=== PATIENT | female | born 1945 | race Caucasian/White ===

== ENCOUNTER → 2017-03-01 | Day surgery (SDC) | payer BC, MEDICARE ==
[~2017-03-01] MED LIST: ANGIOMAX 250 MG VIAL IV ONE; EPTIFIBATIDE INJ (2MG/ML) 10ML VIAL IV ONE; IODIXANOL 320MG/ML 100ML BTL IV ONE; LIDOCAINE 2%HCL (LOCAL ANESTH.) INJ 20ML MDV ONE; MIDAZOLAM HCL 1MG/1ML-2 ML VIAL ONE; SODIUM CHL 0.9% 0 ML ONE; VERAPAMIL 2.5MG/ML INJ 2ML VIAL IV ONE; fentaNYL CITRATE 100 MCG/2 ML VL ONE
== END | disposition home or self-care (01) ==
LOC: CATH 09:43 → EDUNIT# 09:43
PROVIDERS: ATTEND Internal Medicine
DX: I27.2 Other secondary pulmonary hypertension (principal); Z87.891 Personal history of nicotine dependence
CPT/HCPCS: 93460; C1751; C1760; C1769; C1894; J1644; J2250; J3010; J7030; Q9967; 99152

== ENCOUNTER 2018-02-17 14:12 | Inpatient (IN) | payer MEDICARE, OTHER ==
[~2018-02-17] VITALS: Ht 154.9 cm; Wt 79.9 kg
[~2018-02-17 14:12] MED LIST changes: +ACE3T PO; -ANGIOMAX 250 MG VIAL IV ONE; -EPTIFIBATIDE INJ (2MG/ML) 10ML VIAL IV ONE; +ETAN50IN5 SC; +FOLI1TAB6 PO; +FURO40TA PO; +HYDR200T PO; -IODIXANOL 320MG/ML 100ML BTL IV ONE; -LIDOCAINE 2%HCL (LOCAL ANESTH.) INJ 20ML MDV ONE; +LISI-711 PO; +METH2.5T3 PO; +METO5TAB56 PO; -MIDAZOLAM HCL 1MG/1ML-2 ML VIAL ONE; +POTA10TA34 PO; +RANI300T3 PO; +SILD50TA42 PO; -SODIUM CHL 0.9% 0 ML ONE; +TRAV0.00 EACHEYE; -VERAPAMIL 2.5MG/ML INJ 2ML VIAL IV ONE; -fentaNYL CITRATE 100 MCG/2 ML VL ONE
[2018-02-17 15:17] LABS: Eosinophils # (auto) 0.1 uL; Hemoglobin 12.6 g/dL (12.2-16.2); Nucleated Red Blood Cells % 0.3 %; White Blood Cell 8.4 10^3/uL (4.4-10.8)
[2018-02-17 15:19] LABS: Basophils # (auto) 0 uL; Basophils % (auto) 0.4 % (0.0-2.0); Eosinophils % (auto) 0.9 % (0.0-7.0); Hematocrit 42.1 % (36.0-46.0); Lymphocytes # (auto) 0.8 uL; Lymphocytes % (auto) 10.1 % (10.0-50.0); Mean Corpuscular Hemoglobin 23.6 pg (28.0-32.0); Mean Corpuscular Hgb Conc. 29.8 g/dL (32.0-36.0); Mean Corpuscular Volume 79.3 fL (80.0-100.0); Monocytes # (auto) 0.8 uL; Monocytes % (auto) 10.1 % (0.0-12.0); Neutrophils # (auto) 6.6 uL; Neutrophils % (auto) 78.5 % (37.0-80.0); Platelet Count (auto) 188 10^3/uL (140-450); Red Blood Cells 5.32 10^6/uL (4.0-5.20)
[2018-02-17 15:20] LABS: Red Cell Distribution Width 22.3 % (11.8-14.3)
[2018-02-17 15:29] LABS: Albumin 3.2 g/dL (3.4-5.0); BUN/Creatinine Ratio 32.5; Calcium 8.5 mg/dL (8.5-10.1); Magnesium 3.4 mg/dL (1.6-2.6); Potassium 4.7 mmol/L (3.5-5.1)
[2018-02-17 15:34] LABS: Bilirubin, Total 1.4 mg/dL (0.2-1.0); Total Protein 6.7 g/dL (6.4-8.2)
[2018-02-17] MEDS ORDERED: FUROSEMIDE 20 MG/2 ML VIAL IV ONE (16:30)
[2018-02-17] MEDS ORDERED: ENOXAPARIN SOD 80 MG/0.8ML SYRINGE SC ONE (16:30)
[2018-02-17 17:03] LABS: Urine Bacteria NONE SEEN /hpf (None Seen); Urine Blood Negative /uL (Negative); Urine Specific Gravity 1.019 (1.001-1.035); Urine WBC 2 /hpf (0 - 5)
[2018-02-17] MEDS: ceFAZolin 1GM/50ML 50 ML IV SCH (17:22)
[2018-02-17] MEDS: FOLIC ACID 1 MG TAB PO SCH (17:22)
[2018-02-17] MEDS: FUROSEMIDE 40 MG/4 ML VIAL IV SCH (17:22)
[2018-02-17] MEDS: IPRATROPIUM BROM 0.5 MG/2.5ML INH SOL NEB SCH (18:48)
[2018-02-17] MEDS: ALBUTEROL SULF 2.5 MG/0.5ML(0.5%) NEB SOLN NEB SCH (18:48)
[2018-02-17] MEDS: SODIUM CHLORIDE 0.9% 500 ML IV SCH (19:00)
[2018-02-17] MEDS: SILDENAFIL CITRATE 20 MG TAB PO SCH (19:55)
[2018-02-18] VITALS (7 sets, daily range): BP systolic 98–127; BP diastolic 49–68
[2018-02-18] MEDS: SODIUM CHLORIDE 0.9% 500 ML IV SCH ×2 (00:48→08:26)
[2018-02-18] MEDS: ceFAZolin 1GM/50ML 50 ML IV SCH ×3 (00:48→20:51)
[2018-02-18] MEDS ORDERED: FURO40TA PO (02:02)
[2018-02-18] MEDS ORDERED: RANI150C11 PO (02:02)
[2018-02-18] MEDS ORDERED: POTA10TA51 PO (02:02)
[2018-02-18] MEDS ORDERED: HYDR200T PO (02:02)
[2018-02-18] MEDS ORDERED: SILD20TA PO (02:02)
[2018-02-18] MEDS ORDERED: AMBR1TAB PO (02:02)
[2018-02-18] MEDS: FUROSEMIDE 40 MG/4 ML VIAL IV SCH (05:45)
[2018-02-18 06:53] LABS: Basophils # (auto) 0.1 uL; Eosinophils # (auto) 0.1 uL; Eosinophils % (auto) 1.3 % (0.0-7.0); Hematocrit 39.9 % (36.0-46.0); Hemoglobin 12.1 g/dL (12.2-16.2); Lymphocytes # (auto) 1.1 uL; Lymphocytes % (auto) 15.6 % (10.0-50.0); Mean Corpuscular Hemoglobin 23.8 pg (28.0-32.0); Mean Corpuscular Hgb Conc. 30.3 g/dL (32.0-36.0); Mean Corpuscular Volume 78.7 fL (80.0-100.0); Monocytes # (auto) 0.8 uL; Monocytes % (auto) 10.4 % (0.0-12.0); Neutrophils # (auto) 5.2 uL; Neutrophils % (auto) 71.7 % (37.0-80.0); Nucleated Red Blood Cells % 0.1 %; Platelet Count (auto) 144 10^3/uL (140-450); Red Blood Cells 5.06 10^6/uL (4.0-5.20); White Blood Cell 7.3 10^3/uL (4.4-10.8)
[2018-02-18 07:02] LABS: INR 1.25 (0.9-1.15); Partial Thromboplastin Time 34.9 sec (22.64-33.71); Prothrombin Time 13.7 sec (9.37-12.3)
[2018-02-18] MEDS: ALBUTEROL SULF 2.5 MG/0.5ML(0.5%) NEB SOLN NEB SCH ×4 (07:04→19:29)
[2018-02-18] MEDS: IPRATROPIUM BROM 0.5 MG/2.5ML INH SOL NEB SCH ×4 (07:04→19:29)
[2018-02-18 07:07] LABS: Red Cell Distribution Width 21.7 % (11.8-14.3)
[2018-02-18 07:10] LABS: Potassium 4.6 mmol/L (3.5-5.1)
[2018-02-18 07:16] LABS: BUN/Creatinine Ratio 39.8; Calcium 8.4 mg/dL (8.5-10.1)
[2018-02-18] MEDS: SILDENAFIL CITRATE 20 MG TAB PO SCH ×3 (08:25→20:52)
[2018-02-18] MEDS: HYDROXYCHLOROQUINE SULFATE 200 MG TAB PO SCH (10:42)
[2018-02-18] MEDS: FOLIC ACID 1 MG TAB PO SCH (10:42)
[2018-02-18] MEDS: PANTOPRAZOLE 40 MG TAB PO SCH (10:42)
[2018-02-18] MEDS: ENOXAPARIN SOD 30 MG/0.3 ML SYRINGE SC SCH (10:43)
[2018-02-18] MEDS ORDERED: FUROSEMIDE 40 MG/4 ML VIAL IV SCH (14:00)
[2018-02-18 18:27] LABS: BUN/Creatinine Ratio 38.6; Calcium 8.3 mg/dL (8.5-10.1); Potassium 4.2 mmol/L (3.5-5.1)
[2018-02-18] MEDS: SPIRONOLACTONE 25 MG TAB PO SCH (20:51)
[2018-02-18] MEDS: FUROSEMIDE INJECTION 250 MG in SODIUM CHL 0.9% 225 ML IV SCH (20:57)
[2018-02-19] MEDS: ceFAZolin 1GM/50ML 50 ML IV SCH ×3 (04:48→18:26)
[2018-02-19] MEDS: SPIRONOLACTONE 25 MG TAB PO SCH ×3 (05:02→21:59)
[2018-02-19 05:17] VITALS: BP 123/63
[2018-02-19] MEDS: IPRATROPIUM BROM 0.5 MG/2.5ML INH SOL NEB SCH ×4 (06:00→19:31)
[2018-02-19] MEDS: ALBUTEROL SULF 2.5 MG/0.5ML(0.5%) NEB SOLN NEB SCH ×4 (06:00→19:31)
[2018-02-19 06:59] LABS: Calcium 8.5 mg/dL (8.5-10.1); Potassium 3.7 mmol/L (3.5-5.1)
[2018-02-19 07:01] LABS: BUN/Creatinine Ratio 39.2
[2018-02-19] MEDS: SILDENAFIL CITRATE 20 MG TAB PO SCH ×3 (08:42→20:00)
[2018-02-19 09:00] VITALS: BP 101/51
[2018-02-19] MEDS: ENOXAPARIN SOD 30 MG/0.3 ML SYRINGE SC SCH ×2 (10:00→10:52)
[2018-02-19] MEDS: FOLIC ACID 1 MG TAB PO SCH (10:51)
[2018-02-19] MEDS: PANTOPRAZOLE 40 MG TAB PO SCH (10:51)
[2018-02-19] MEDS: HYDROXYCHLOROQUINE SULFATE 200 MG TAB PO SCH (10:51)
[2018-02-19 13:00] VITALS: BP 111/57
[2018-02-19] MEDS ORDERED: LIDOCAINE HCL 2 %PF INJ 10ML AMP IJ ONE (14:37)
[2018-02-19] MEDS ORDERED: MIDAZOLAM HCL 1MG/1ML-2 ML VIAL ONE (14:56)
[2018-02-19] MEDS: FUROSEMIDE INJECTION 250 MG in SODIUM CHL 0.9% 225 ML IV SCH (16:51)
[2018-02-19 17:00] VITALS: BP 145/75
[2018-02-19 22:00] VITALS: BP 97/44
[2018-02-20] MEDS: ceFAZolin 1GM/50ML 50 ML IV SCH ×3 (03:00→18:23)
[2018-02-20 05:21] VITALS: BP 92/46
[2018-02-20 05:48] LABS: Basophils # (auto) 0.1 uL; Basophils % (auto) 0.7 % (0.0-2.0); Eosinophils # (auto) 0.1 uL; Hematocrit 42.2 % (36.0-46.0); Lymphocytes # (auto) 0.7 uL; Neutrophils # (auto) 5.1 uL; Red Blood Cells 5.37 10^6/uL (4.0-5.20)
[2018-02-20 06:00] LABS: Eosinophils % (auto) 1.5 % (0.0-7.0); Hemoglobin 12.8 g/dL (12.2-16.2); Lymphocytes % (auto) 10.2 % (10.0-50.0); Mean Corpuscular Hemoglobin 23.8 pg (28.0-32.0); Mean Corpuscular Hgb Conc. 30.3 g/dL (32.0-36.0); Mean Corpuscular Volume 78.7 fL (80.0-100.0); Monocytes % (auto) 14.8 % (0.0-12.0); Neutrophils % (auto) 72.8 % (37.0-80.0); Platelet Count (auto) 125 10^3/uL (140-450)
[2018-02-20] MEDS: SPIRONOLACTONE 25 MG TAB PO SCH ×3 (06:00→22:52)
[2018-02-20 06:04] LABS: Red Cell Distribution Width 22.7 % (11.8-14.3)
[2018-02-20 06:26] LABS: Calcium 8.8 mg/dL (8.5-10.1); Potassium 3.5 mmol/L (3.5-5.1)
[2018-02-20] MEDS: IPRATROPIUM BROM 0.5 MG/2.5ML INH SOL NEB SCH ×3 (06:30→19:26)
[2018-02-20] MEDS: ALBUTEROL SULF 2.5 MG/0.5ML(0.5%) NEB SOLN NEB SCH ×3 (06:30→19:26)
[2018-02-20 06:35] LABS: BUN/Creatinine Ratio 33.6
[2018-02-20 08:00] VITALS: BP 99/45
[2018-02-20] MEDS: SILDENAFIL CITRATE 20 MG TAB PO SCH ×3 (08:00→20:00)
[2018-02-20 09:00] VITALS: BP 101/44
[2018-02-20] MEDS: ENOXAPARIN SOD 30 MG/0.3 ML SYRINGE SC SCH (10:24)
[2018-02-20] MEDS: FOLIC ACID 1 MG TAB PO SCH (10:24)
[2018-02-20] MEDS: PANTOPRAZOLE 40 MG TAB PO SCH (10:24)
[2018-02-20] MEDS: HYDROXYCHLOROQUINE SULFATE 200 MG TAB PO SCH (10:24)
[2018-02-20 13:00] VITALS: BP 124/63
[2018-02-20] MEDS: FUROSEMIDE INJECTION 250 MG in SODIUM CHL 0.9% 225 ML IV SCH (14:22)
[2018-02-20 17:00] VITALS: BP 99/53
[2018-02-20 17:12] LABS: Protein, Urine 11.7 mg/dL (0.0-11.9)
[2018-02-20 22:23] VITALS: BP 102/59
[2018-02-21] MEDS: ceFAZolin 1GM/50ML 50 ML IV SCH ×2 (02:40→10:50)
[2018-02-21 05:03] VITALS: BP 100/54
[2018-02-21] MEDS: SPIRONOLACTONE 25 MG TAB PO SCH (05:37)
[2018-02-21] MEDS: IPRATROPIUM BROM 0.5 MG/2.5ML INH SOL NEB SCH ×3 (06:05→11:09)
[2018-02-21] MEDS: ALBUTEROL SULF 2.5 MG/0.5ML(0.5%) NEB SOLN NEB SCH ×3 (06:05→11:09)
[2018-02-21 08:00] VITALS: BP 99/40
[2018-02-21] MEDS: SILDENAFIL CITRATE 20 MG TAB PO SCH (08:00)
[2018-02-21 09:00] VITALS: BP 99/40
[2018-02-21] MEDS: ENOXAPARIN SOD 30 MG/0.3 ML SYRINGE SC SCH (09:26)
[2018-02-21] MEDS: HYDROXYCHLOROQUINE SULFATE 200 MG TAB PO SCH (09:27)
[2018-02-21] MEDS: FOLIC ACID 1 MG TAB PO SCH (09:27)
[2018-02-21] MEDS: PANTOPRAZOLE 40 MG TAB PO SCH (09:27)
[2018-02-21] MEDS: FUROSEMIDE INJECTION 250 MG in SODIUM CHL 0.9% 225 ML IV SCH (13:00)
[2018-02-21 13:21] VITALS: BP 99/60
== END 2018-02-21 14:20 | disposition home health service (06) | DRG 280 ==
LOC: ER 14:12 → OVERFLOW 14:13 → MERGE 14:13 → WEST WING 21:53
PROVIDERS: ADMIT Internal Medicine; ATTEND Internal Medicine Pulmonary Disease
PROC: 4A023N6 Measurement of Cardiac Sampling and Pressure, Right Heart, Percutaneous Approach (ICD-10-PCS; principal; 2018-02-19)
PROC: B2111ZZ Fluoroscopy of Multiple Coronary Arteries using Low Osmolar Contrast (ICD-10-PCS; 2018-02-19)
PROC: B2141ZZ Fluoroscopy of Right Heart using Low Osmolar Contrast (ICD-10-PCS; 2018-02-19)
DX: I13.0 Hypertensive heart and chronic kidney disease with heart failure and stage 1 through stage 4 chronic kidney disease, or unspecified chronic kidney disease (principal); I21.4 Non-ST elevation (NSTEMI) myocardial infarction; I50.33 Acute on chronic diastolic (congestive) heart failure; N17.0 Acute kidney failure with tubular necrosis; J96.10 Chronic respiratory failure, unspecified whether with hypoxia or hypercapnia; I27.21 Secondary pulmonary arterial hypertension; E66.9 Obesity, unspecified; J44.9 Chronic obstructive pulmonary disease, unspecified; F17.210 Nicotine dependence, cigarettes, uncomplicated; I73.9 Peripheral vascular disease, unspecified; I50.82 Biventricular heart failure; D75.1 Secondary polycythemia; M06.9 Rheumatoid arthritis, unspecified; N18.3 Chronic kidney disease, stage 3 (moderate); Z80.0 Family history of malignant neoplasm of digestive organs; Z80.8 Family history of malignant neoplasm of other organs or systems; Z82.0 Family history of epilepsy and other diseases of the nervous system; Z82.49 Family history of ischemic heart disease and other diseases of the circulatory system; Z90.710 Acquired absence of both cervix and uterus; Z88.8 Allergy status to other drugs, medicaments and biological substances; Z68.33 Body mass index [BMI] 33.0-33.9, adult
CPT/HCPCS: 36415; 36600; 71046; 76775; 80048; 80053; 81001; 82570; 82805; 83735; 83880; 84156; 84484; 85025; 85610; 85730; 86850; 86900; 86901; 93005; 93451; 93926; 94640; 96361; 96372; 96374; 99152; 99291; J0690; J2250